=== PATIENT | male | born 1990 | race Caucasian/White ===

== ENCOUNTER 2018-12-12 20:43 | Emergency (ER) | payer MEDICAID, OTHER ==
[~2018-12-12] VITALS: Ht 182.9 cm; Wt 117.5 kg
[2018-12-12 20:45] VITALS: BP 149/93
[2018-12-12] MEDS ORDERED: ketorolac trometh inj. 60 MG/2 ML VIAL IM ONE (21:05)
[2018-12-12] MEDS ORDERED: IBUP-1986 PO (21:05)
== END 2018-12-12 21:36 | disposition home or self-care (01) ==
LOC: ER 20:43
DX: M72.2 Plantar fascial fibromatosis (principal); I48.91 Unspecified atrial fibrillation; I10 Essential (primary) hypertension; G47.30 Sleep apnea, unspecified; F31.9 Bipolar disorder, unspecified; F15.90 Other stimulant use, unspecified, uncomplicated; Z98.890 Other specified postprocedural states; Z88.8 Allergy status to other drugs, medicaments and biological substances; Z79.899 Other long term (current) drug therapy; Z59.0 Homelessness
CPT/HCPCS: 96372; 99284; J1885

== ENCOUNTER 2018-12-15 23:15 | Emergency (ER) | payer OTHER ==
[~2018-12-15] VITALS: Ht 182.9 cm; Wt 152.3 kg
[~2018-12-15 23:15] MED LIST: IBUP-1986 PO
[2018-12-16] MEDS ORDERED: ibuprofen tablet 400 MG TABLET PO ONE
[2018-12-16 02:33] VITALS: BP 161/89
== END 2018-12-16 00:50 | disposition home or self-care (01) ==
LOC: ER 23:16
DX: M79.671 Pain in right foot (principal); M79.672 Pain in left foot; I48.91 Unspecified atrial fibrillation; I10 Essential (primary) hypertension; F31.9 Bipolar disorder, unspecified; F15.90 Other stimulant use, unspecified, uncomplicated; Z88.8 Allergy status to other drugs, medicaments and biological substances; Z79.1 Long term (current) use of non-steroidal anti-inflammatories (NSAID); Z59.0 Homelessness; Z90.89 Acquired absence of other organs
CPT/HCPCS: 99282

== ENCOUNTER 2018-12-16 18:47 | Emergency (ER) | payer OTHER ==
[~2018-12-16] VITALS: Ht 182.9 cm; Wt 152.7 kg
[2018-12-16 18:50] VITALS: BP 165/93
[2018-12-16] MEDS ORDERED: ibuprofen tablet 400 MG TABLET PO ONE (19:20)
== END 2018-12-16 19:32 | disposition home or self-care (01) ==
LOC: ER 18:48
DX: L30.4 Erythema intertrigo (principal); I48.91 Unspecified atrial fibrillation; I10 Essential (primary) hypertension; F15.90 Other stimulant use, unspecified, uncomplicated; Z59.0 Homelessness; Z90.89 Acquired absence of other organs; Z88.8 Allergy status to other drugs, medicaments and biological substances
CPT/HCPCS: 99283

== ENCOUNTER 2018-12-17 14:08 | Emergency (ER) | payer OTHER ==
[~2018-12-17] VITALS: Ht 182.9 cm; Wt 150.8 kg
[2018-12-17 15:28] LABS: BASOPHILS # (AUTO) 0.1 X10'3 (0-0.2); BASOPHILS % (AUTO) 0.5 % (0-1); EOSINOPHILS # (AUTO) 0.3 X10'3 (0-0.9); EOSINOPHILS % (AUTO) 2.5 % (0-6); HEMOGLOBIN 14.3 g/dl (14.0-17.9); LYMPHOCYTES # (AUTO) 2.3 X10'3 (1.1-4.8); LYMPHOCYTES % (AUTO) 21.6 % (21-51); MEAN CORPUSCULAR HEMOGLOBIN 29.5 PG (27.0-31.0); MEAN CORPUSCULAR HGB CONC 33.4 g/dL (33.0-36.5); MEAN CORPUSCULAR VOLUME 88.3 FL (78-98); MEAN PLATELET VOLUME 8.2 FL (7.4-10.4); MONOCYTES # (AUTO) 0.9 X10'3 (0-0.9); MONOCYTES % (AUTO) 8.9 % (2-12); NEUTROPHILS % (AUTO) 66.5 % (42-75); PLATELET COUNT 243 X10'3 (140-440); RED BLOOD COUNT 4.87 X10'6 (4.70-6.10); RED CELL DISTRIBUTION WIDTH 13.7 % (11.5-14.5); WHITE BLOOD COUNT 10.6 X10'3 (4.5-11.0)
[2018-12-17 15:40] LABS: ALANINE AMINOTRANSFERASE 43 U/L (12-78); ALBUMIN 3.4 G/DL (3.4-5.0); ALBUMIN/GLOBULIN RATIO 0.9 (1.1-1.5); ALKALINE PHOSPHATASE 78 IU/L (46-116); ANION GAP 8 (8-16); ASPARTATE AMINO TRANSFERASE 21 U/L (10-37); BILIRUBIN,TOTAL 0.3 MG/DL (0.1-1.0); BLOOD UREA NITROGEN 10 MG/DL (7-18); BUN/CREATININE RATIO 11.5 (5.4-32.0); CALCIUM 8.3 MG/DL (8.5-10.1); CHLORIDE 106 MMOL/L (99-107); CREATININE 0.87 MG/DL (0.60-1.10); GLUCOSE 86 MG/DL (70-104); POTASSIUM 3.7 MMOL/L (3.5-5.1); SODIUM 140 MMOL/L (135-145); TOTAL CARBON DIOXIDE 25.8 MMOL/L (24-32); TOTAL PROTEIN 7.2 G/DL (6.4-8.2); eGFR > 90 ML/MIN
[2018-12-17 15:47] LABS: ACETAMINOPHEN < 2.0 UG/ML (10-30)
--- NOTE | 2018-12-17 16:00 | NUR ---
pt arrived to ED 22 from main ER. Changed into green scrubs. Pt belongings documented and stored in lockers. Pt oriented to unit. Calm and cooperative. Attempted to obtain urine sample but pt missed urine specimen cup. PO fluids encouraged to obtain another urine sample. Pt resting in bed and drinking at this time.
[2018-12-17 17:27] LABS: CLARITY,URINE CLEAR (Clear); COLOR,URINE YELLOW (Yellow); GLUCOSE, URINE NEGATIVE (Neg); KETONES,URINE NEGATIVE (Neg); LEUKOCYTE ESTERASE ,URINE NEGATIVE (Neg); NITRITES, URINE NEGATIVE (Neg); OCCULT BLOOD,URINE NEGATIVE (Neg); PH,URINE 7.5 (4.8-8.0); PROTEIN,URINE NEGATIVE (Neg); UROBILINOGEN,URINE 0.2 E.U/dL (0.2-1.0)
--- NOTE | 2018-12-17 17:29 | NUR ---
pt resting comfortably in bed. Urine specimen obtained and sent to the lab.
[2018-12-17 17:37] LABS: UA COLLECTION TYPE CLN CATCH MIDSTREAM
[2018-12-17 17:40] LABS: URINE AMPHETAMINE SCREEN NEGATIVE (Neg); URINE BARBITUATE SCREEN NEGATIVE (Neg); URINE BENZODIAZEPINES SCREEN NEGATIVE (Neg); URINE CANNABINOID SCREEN NEGATIVE (Neg); URINE COCAINE SCREEN NEGATIVE (Neg); URINE METHADONE SCREEN NEGATIVE (Neg); URINE OPIATE SCREEN NEGATIVE (Neg); URINE PHENCYCLIDINE SCREEN NEGATIVE (Neg)
--- NOTE | 2018-12-17 18:22 | NUR ---
pt resting comfortably in bed. Report given to CRISTIAN Reyesweb portal developerassistant spa manager for continuation of care.
--- NOTE | 2018-12-17 19:25 | NUR ---
Patient was sleeping at shift change. Patient awakens easily. Depression is obvious. Affect is flat. Patient makes fair eye contact. The patient is well oriented and angry. Labile at times. This patient states he has no mental problems save for anxiety. Patient states his family paid 2000 dollars to have him diagnosed as Bipolar. My family is all a bunch of liars! "I have anxiety because everyone lies to me, including my family." Patient states he is homeless. "I did stay in a motel last night, and I bought some clothes. [place] [address]." The patient denies hallucinations. Patient states he has attempted S/I in the past. Examples: Cutting wrists, stabbing self, overdosed on pills. "I thought about chopping off my shady, it made me love myself more." At this time patient is S/I without a plan. This expert medical writer advised the patient that he is in a safe place. His bed is in direct view from the nursing station. Q15 minute rounding is in effect for patient safety.
--- NOTE | 2018-12-18 02:54 | NUR ---
Patient is sleeping quietly, low fowlers position. In view from nursing station. Q15 minute rounding for patient safety.
--- NOTE | 2018-12-18 05:20 | NUR ---
Patient is sleeping quietly. He was up to bathroom earlier.
[2018-12-18] MEDS ORDERED: LORazepam 1 MG tablet PO ONE (10:30)
--- NOTE | 2018-12-18 14:24 | NUR ---
ADISY FROM [facility] IS AT BEDSIDE TALKING WITH PT
[2018-12-18 15:48] VITALS: BP 137/83
[2018-12-19] MEDS ORDERED: HYDR-3686 PO (17:12)
== END 2018-12-18 16:17 | disposition home or self-care (01) ==
LOC: ER 14:08
DX: R45.851 Suicidal ideations (principal); F41.9 Anxiety disorder, unspecified; R07.89 Other chest pain; R06.02 Shortness of breath; R10.9 Unspecified abdominal pain; M54.9 Dorsalgia, unspecified; I48.91 Unspecified atrial fibrillation; I10 Essential (primary) hypertension; G47.30 Sleep apnea, unspecified; F31.9 Bipolar disorder, unspecified; F17.200 Nicotine dependence, unspecified, uncomplicated; F15.90 Other stimulant use, unspecified, uncomplicated; F12.90 Cannabis use, unspecified, uncomplicated; Z90.89 Acquired absence of other organs; Z59.0 Homelessness; Z88.1 Allergy status to other antibiotic agents; Z88.8 Allergy status to other drugs, medicaments and biological substances; Z79.899 Other long term (current) drug therapy
CPT/HCPCS: 36415; 80053; 80305; 80329; 81003; 85025; 99284

== ENCOUNTER 2018-12-19 15:30 | Emergency (ER) | payer OTHER ==
[2018-12-19] MEDS ORDERED: HYDR-3686 PO (17:12)
== END 2018-12-19 15:42 | disposition left against medical advice (07) ==
LOC: ER 15:31
DX: F41.9 Anxiety disorder, unspecified (principal); Z53.21 Procedure and treatment not carried out due to patient leaving prior to being seen by health care provider

== ENCOUNTER 2018-12-19 16:49 | Emergency (ER) | payer OTHER ==
[~2018-12-19] VITALS: Ht 172.7 cm; Wt 125.0 kg
[2018-12-19 17:06] VITALS: BP 146/73
[2018-12-19] MEDS ORDERED: HYDR-3686 PO (17:12)
== END 2018-12-19 18:30 | disposition home or self-care (01) ==
LOC: ER 16:50
DX: F41.9 Anxiety disorder, unspecified (principal); I48.91 Unspecified atrial fibrillation; I10 Essential (primary) hypertension; G47.30 Sleep apnea, unspecified; F31.9 Bipolar disorder, unspecified; F12.90 Cannabis use, unspecified, uncomplicated; F15.90 Other stimulant use, unspecified, uncomplicated; Z59.0 Homelessness; Z98.890 Other specified postprocedural states; Z88.8 Allergy status to other drugs, medicaments and biological substances; Z79.899 Other long term (current) drug therapy
CPT/HCPCS: 99284

== ENCOUNTER 2018-12-20 12:47 | Emergency (ER) | payer OTHER ==
[~2018-12-20] VITALS: Ht 182.9 cm; Wt 148.8 kg
[~2018-12-20 12:47] MED LIST changes: +HYDR-3686 PO
[2018-12-20 13:09] VITALS: BP 127/91
--- NOTE | 2018-12-20 13:42 | NUR ---
Pt sitting quietly in room using cellphone. No acute objective anxiety s/s observed.
--- NOTE | 2018-12-20 13:57 | NUR ---
Pt repeatedly asking for bus ticket to [place]. When asked if he needed a taxi somewhere at discharge, he replied he needed one to [place]. I told the patient that we could not supply that and provided him a meal. When Pt was told it was time to leave, Pt got upset and stormed out of the ED. Pt threw his discharge papers at the tech and refused the food provided.
== END 2018-12-20 14:02 | disposition home or self-care (01) ==
LOC: ER 12:47
DX: F41.9 Anxiety disorder, unspecified (principal); I48.91 Unspecified atrial fibrillation; I10 Essential (primary) hypertension; G47.30 Sleep apnea, unspecified; F31.9 Bipolar disorder, unspecified; F12.90 Cannabis use, unspecified, uncomplicated; F15.90 Other stimulant use, unspecified, uncomplicated; Z59.0 Homelessness; Z98.890 Other specified postprocedural states; Z88.8 Allergy status to other drugs, medicaments and biological substances; Z79.899 Other long term (current) drug therapy
CPT/HCPCS: 99284

== ENCOUNTER 2018-12-21 06:14 | Emergency (ER) | payer OTHER ==
[2018-12-21 06:16] VITALS: BP 146/77
== END 2018-12-21 07:03 | disposition home or self-care (01) ==
LOC: ER 06:14
DX: F41.9 Anxiety disorder, unspecified (principal); R40.0 Somnolence; I48.91 Unspecified atrial fibrillation; I10 Essential (primary) hypertension; G47.30 Sleep apnea, unspecified; F31.9 Bipolar disorder, unspecified; F12.90 Cannabis use, unspecified, uncomplicated; F15.90 Other stimulant use, unspecified, uncomplicated; Z98.890 Other specified postprocedural states; Z59.0 Homelessness; Z88.8 Allergy status to other drugs, medicaments and biological substances; Z79.899 Other long term (current) drug therapy
CPT/HCPCS: 99284

== ENCOUNTER 2018-12-21 12:51 | Emergency (ER) | payer OTHER ==
[2018-12-21 13:42] LABS: BASOPHILS # (AUTO) 0.1 X10'3 (0-0.2); BASOPHILS % (AUTO) 0.9 % (0-1); EOSINOPHILS # (AUTO) 0.3 X10'3 (0-0.9); EOSINOPHILS % (AUTO) 2.8 % (0-6); HEMATOCRIT 44.8 % (42.0-52.0); HEMOGLOBIN 15.1 g/dl (14.0-17.9); LYMPHOCYTES % (AUTO) 24.4 % (21-51); MEAN CORPUSCULAR HEMOGLOBIN 29.8 PG (27.0-31.0); MEAN CORPUSCULAR HGB CONC 33.7 g/dL (33.0-36.5); MEAN CORPUSCULAR VOLUME 88.2 FL (78-98); MEAN PLATELET VOLUME 7.9 FL (7.4-10.4); MONOCYTES # (AUTO) 1.2 X10'3 (0-0.9); MONOCYTES % (AUTO) 9.9 % (2-12); NEUTROPHILS # (AUTO) 7.7 X10'3 (1.8-7.7); PLATELET COUNT 284 X10'3 (140-440); RED BLOOD COUNT 5.08 X10'6 (4.70-6.10); RED CELL DISTRIBUTION WIDTH 13.7 % (11.5-14.5); WHITE BLOOD COUNT 12.4 X10'3 (4.5-11.0)
[2018-12-21 13:57] LABS: ALANINE AMINOTRANSFERASE 47 U/L (12-78); ALBUMIN 3.7 G/DL (3.4-5.0); ALBUMIN/GLOBULIN RATIO 0.9 (1.1-1.5); ALKALINE PHOSPHATASE 85 IU/L (46-116); ANION GAP 9 (8-16); ASPARTATE AMINO TRANSFERASE 26 U/L (10-37); BILIRUBIN,TOTAL 0.4 MG/DL (0.1-1.0); BLOOD UREA NITROGEN 10 MG/DL (7-18); BUN/CREATININE RATIO 12.7 (5.4-32.0); CALCIUM 9.1 MG/DL (8.5-10.1); CHLORIDE 106 MMOL/L (99-107); CREATININE 0.79 MG/DL (0.60-1.10); GLUCOSE 90 MG/DL (70-104); POTASSIUM 3.8 MMOL/L (3.5-5.1); SODIUM 142 MMOL/L (135-145); TOTAL CARBON DIOXIDE 27.2 MMOL/L (24-32); TOTAL PROTEIN 7.7 G/DL (6.4-8.2); eGFR > 90 ML/MIN
[2018-12-21 14:05] LABS: CLARITY,URINE CLEAR (Clear); COLOR,URINE YELLOW (Yellow); GLUCOSE, URINE NEGATIVE (Neg); KETONES,URINE NEGATIVE (Neg); LEUKOCYTE ESTERASE ,URINE NEGATIVE (Neg); NITRITES, URINE NEGATIVE (Neg); OCCULT BLOOD,URINE NEGATIVE (Neg); PH,URINE 5.5 (4.8-8.0); PROTEIN,URINE NEGATIVE (Neg); URINE AMPHETAMINE SCREEN NEGATIVE (Neg); URINE BARBITUATE SCREEN NEGATIVE (Neg); URINE BENZODIAZEPINES SCREEN NEGATIVE (Neg); URINE CANNABINOID SCREEN NEGATIVE (Neg); URINE COCAINE SCREEN NEGATIVE (Neg); URINE METHADONE SCREEN NEGATIVE (Neg); URINE OPIATE SCREEN NEGATIVE (Neg); URINE PHENCYCLIDINE SCREEN NEGATIVE (Neg); UROBILINOGEN,URINE 0.2 E.U/dL (0.2-1.0)
[2018-12-21 14:06] LABS: ETHANOL < 0.010 GM/DL (0.0-0.010)
[2018-12-21 14:12] LABS: UA COLLECTION TYPE CLN CATCH MIDSTREAM
--- NOTE | 2018-12-21 15:03 | NUR ---
Admission Note: Pt arrived from [facility] on 1798. Pt packet sent to [facility]. Pt c/o right hand pain due to punching wall. Hand is swollen, but x-ray is negative. Pt states he is here for anxiety and wants ativan. Pt cooperative with nursing assessment, but appeared sedated and when left alone for 5 minutes, pt fell asleep and is snoring.
--- NOTE | 2018-12-21 17:00 | NUR ---
Pt remains asleep without complaints.
--- NOTE | 2018-12-21 19:22 | NUR ---
Assumed care at 1830 from Mati RN. This patient has been evaluated by [facility]. He is to be discharged. This patient dressed. This rewriter reviewed discharge instructions with the patient. He exhibited understanding of said instructions. The patient requests that this rewriter call his mother Griselda Loya. He asks this rewriter to inform his mother of his circomstances including his patient information. A phone call was placed to Griselda, her voice mail identified her as an RN/Patient advocate. This rewriter left a message return a call to this rewriter iva at [facility] ER. At the time of discharge a call had not been returned. This patient was offered a taxi for transportation to where ever he needs to go. He declined. He walked from the ER to the streets. A sandwich was offered and accepted by Mr. Sweet.
[2018-12-21 19:32] VITALS: BP 134/75
== END 2018-12-21 19:36 | disposition home or self-care (01) ==
LOC: ER 12:51
DX: S60.221A Contusion of right hand, initial encounter (principal); R45.850 Homicidal ideations; R45.851 Suicidal ideations; M79.641 Pain in right hand; F41.9 Anxiety disorder, unspecified; I48.91 Unspecified atrial fibrillation; I10 Essential (primary) hypertension; G47.30 Sleep apnea, unspecified; F31.9 Bipolar disorder, unspecified; F12.90 Cannabis use, unspecified, uncomplicated; F15.90 Other stimulant use, unspecified, uncomplicated; Z59.0 Homelessness; Z98.890 Other specified postprocedural states; Z88.8 Allergy status to other drugs, medicaments and biological substances; Z79.899 Other long term (current) drug therapy; X83.8XXA Intentional self-harm by other specified means, initial encounter; Y93.89 Activity, other specified; Y92.89 Other specified places as the place of occurrence of the external cause; Y99.8 Other external cause status
CPT/HCPCS: 36415; 73130; 80053; 80305; 80320; 81003; 84443; 85025; 99284

== ENCOUNTER 2019-06-06 20:04 | Emergency (ER) | payer OTHER ==
[~2019-06-06] VITALS: Ht 182.9 cm; Wt 136.0 kg
[~2019-06-06 20:04] MED LIST changes: -HYDR-3686 PO
[2019-06-06] MEDS ORDERED: hydrOXYzine 25 MG tablet PO ONE (20:45)
[2019-06-06] MEDS ORDERED: acetaminophen 325mg tablet PO ONE (20:45)
[2019-06-06 21:04] VITALS: BP 126/75
[2019-06-07] MEDS ORDERED: CEPH250T PO (18:26)
== END 2019-06-06 21:07 | disposition home or self-care (01) ==
LOC: ER 20:05
DX: M79.671 Pain in right foot (principal); I48.91 Unspecified atrial fibrillation; I10 Essential (primary) hypertension; F41.9 Anxiety disorder, unspecified; F31.9 Bipolar disorder, unspecified; G47.30 Sleep apnea, unspecified; F10.99 Alcohol use, unspecified with unspecified alcohol-induced disorder; Z90.89 Acquired absence of other organs; Z90.49 Acquired absence of other specified parts of digestive tract; Z59.0 Homelessness; Z79.2 Long term (current) use of antibiotics; Z79.899 Other long term (current) drug therapy; Z88.8 Allergy status to other drugs, medicaments and biological substances; Y90.9 Presence of alcohol in blood, level not specified
CPT/HCPCS: 73630; 99283; Z7610

== ENCOUNTER 2019-06-07 17:06 | Emergency (ER) | payer OTHER ==
[~2019-06-07] VITALS: Ht 188 cm; Wt 140.9 kg
[2019-06-07 17:19] VITALS: BP 165/89
--- NOTE | 2019-06-07 18:07 | NUR ---
Pt opened his eyes and took a swing at CHARLI Smith. Pt then closed eyes and refuses to respond to questioning.
[2019-06-07 18:08] LABS: BASOPHILS # (AUTO) 0.1 X10'3 (0-0.2); BASOPHILS % (AUTO) 0.5 % (0-1); EOSINOPHILS # (AUTO) 0.5 X10'3 (0-0.9); EOSINOPHILS % (AUTO) 4.3 % (0-6); HEMATOCRIT 39.6 % (42.0-52.0); HEMOGLOBIN 13.4 g/dl (14.0-17.9); LYMPHOCYTES # (AUTO) 1.8 X10'3 (1.1-4.8); LYMPHOCYTES % (AUTO) 15.4 % (21-51); MEAN CORPUSCULAR HEMOGLOBIN 29.4 PG (27.0-31.0); MEAN CORPUSCULAR HGB CONC 33.9 g/dL (33.0-36.5); MEAN CORPUSCULAR VOLUME 86.7 FL (78-98); MEAN PLATELET VOLUME 8.8 FL (7.4-10.4); MONOCYTES # (AUTO) 1.3 X10'3 (0-0.9); MONOCYTES % (AUTO) 11.2 % (2-12); NEUTROPHILS # (AUTO) 7.9 X10'3 (1.8-7.7); NEUTROPHILS % (AUTO) 68.6 % (42-75); PLATELET COUNT 238 X10'3 (140-440); RED BLOOD COUNT 4.56 X10'6 (4.70-6.10); RED CELL DISTRIBUTION WIDTH 13.5 % (11.5-14.5); WHITE BLOOD COUNT 11.6 X10'3 (4.5-11.0)
[2019-06-07 18:24] LABS: ALANINE AMINOTRANSFERASE 40 U/L (12-78); ALBUMIN 3.5 G/DL (3.4-5.0); ALKALINE PHOSPHATASE 83 IU/L (46-116); ANION GAP 6 (8-16); ASPARTATE AMINO TRANSFERASE 46 U/L (10-37); BILIRUBIN,TOTAL 0.2 MG/DL (0.1-1.0); BLOOD UREA NITROGEN 12 MG/DL (7-18); BUN/CREATININE RATIO 13.5 (5.4-32.0); CALCIUM 8.6 MG/DL (8.5-10.1); CHLORIDE 109 MMOL/L (99-107); CREATININE 0.89 MG/DL (0.60-1.10); GLUCOSE 94 MG/DL (70-104); POTASSIUM 3.6 MMOL/L (3.5-5.1); SODIUM 146 MMOL/L (135-145); TOTAL CARBON DIOXIDE 30.6 MMOL/L (24-32); TOTAL PROTEIN 6.9 G/DL (6.4-8.2); eGFR > 90 ML/MIN
[2019-06-07] MEDS ORDERED: CEPH250T PO (18:26)
[2019-06-07 18:34] LABS: ETHANOL < 0.010 GM/DL (0.0-0.010)
--- NOTE | 2019-06-07 18:36 | NUR ---
PT DISCHARGE READY. PT REFUSED TO SIGN PAPERWORK AND REFUSING TO LEAVE.
== END 2019-06-07 18:38 | disposition home or self-care (01) ==
LOC: ER 17:07
DX: L03.116 Cellulitis of left lower limb (principal); L03.115 Cellulitis of right lower limb; I48.91 Unspecified atrial fibrillation; I10 Essential (primary) hypertension; F41.9 Anxiety disorder, unspecified; F31.9 Bipolar disorder, unspecified; F12.90 Cannabis use, unspecified, uncomplicated; F15.90 Other stimulant use, unspecified, uncomplicated; R41.82 Altered mental status, unspecified; Z59.0 Homelessness; Z90.89 Acquired absence of other organs; Z91.19 Patient's noncompliance with other medical treatment and regimen; Z88.8 Allergy status to other drugs, medicaments and biological substances
CPT/HCPCS: 36415; 80053; 80320; 84443; 85025; 99283

== ENCOUNTER 2019-06-08 13:33 | Emergency (ER) | payer OTHER ==
[~2019-06-08] VITALS: Ht 188 cm; Wt 138.6 kg
[~2019-06-08 13:33] MED LIST changes: +CEPH250T PO
[2019-06-08 15:19] LABS: BASOPHILS # (AUTO) 0.1 X10'3 (0-0.2); BASOPHILS % (AUTO) 0.6 % (0-1); EOSINOPHILS # (AUTO) 0.3 X10'3 (0-0.9); EOSINOPHILS % (AUTO) 2.6 % (0-6); HEMATOCRIT 38.8 % (42.0-52.0); HEMOGLOBIN 13.4 g/dl (14.0-17.9); MEAN CORPUSCULAR HEMOGLOBIN 29.9 PG (27.0-31.0); MEAN CORPUSCULAR HGB CONC 34.6 g/dL (33.0-36.5); MEAN CORPUSCULAR VOLUME 86.6 FL (78-98); MEAN PLATELET VOLUME 8.5 FL (7.4-10.4); MONOCYTES # (AUTO) 0.8 X10'3 (0-0.9); MONOCYTES % (AUTO) 7.4 % (2-12); NEUTROPHILS # (AUTO) 7.5 X10'3 (1.8-7.7); NEUTROPHILS % (AUTO) 70.4 % (42-75); PLATELET COUNT 255 X10'3 (140-440); RED BLOOD COUNT 4.48 X10'6 (4.70-6.10); RED CELL DISTRIBUTION WIDTH 13.1 % (11.5-14.5); WHITE BLOOD COUNT 10.6 X10'3 (4.5-11.0)
--- NOTE | 2019-06-08 15:30 | NUR ---
motion picture set up worker Mariana Cedeno from [employer] called and left phone number to call for inquiries regarding pt care. Report pt was recently encarcerated and was released with plan for pt to go to board and care. After pt released pt shortly eloped on bus to here in [place]. Report pt has Uncle here [place] and gave contact number . Inquired on pt meds and report pt has not been on medications since December as pt has been non-compliant and refusing to take.
[2019-06-08 15:31] LABS: URINE AMPHETAMINE SCREEN NEGATIVE (Neg); URINE BARBITUATE SCREEN NEGATIVE (Neg); URINE BENZODIAZEPINES SCREEN NEGATIVE (Neg); URINE CANNABINOID SCREEN NEGATIVE (Neg); URINE COCAINE SCREEN NEGATIVE (Neg); URINE METHADONE SCREEN NEGATIVE (Neg); URINE OPIATE SCREEN NEGATIVE (Neg); URINE PHENCYCLIDINE SCREEN NEGATIVE (Neg)
[2019-06-08 15:32] LABS: ALANINE AMINOTRANSFERASE 40 U/L (12-78); ALBUMIN 3.4 G/DL (3.4-5.0); ALKALINE PHOSPHATASE 91 IU/L (46-116); ANION GAP 9 (8-16); ASPARTATE AMINO TRANSFERASE 48 U/L (10-37); BILIRUBIN,TOTAL 0.3 MG/DL (0.1-1.0); BLOOD UREA NITROGEN 11 MG/DL (7-18); BUN/CREATININE RATIO 12.9 (5.4-32.0); CALCIUM 8.4 MG/DL (8.5-10.1); CHLORIDE 108 MMOL/L (99-107); CREATININE 0.85 MG/DL (0.60-1.10); ETHANOL < 0.010 GM/DL (0.0-0.010); GLUCOSE 126 MG/DL (70-104); POTASSIUM 3.4 MMOL/L (3.5-5.1); SODIUM 145 MMOL/L (135-145); TOTAL CARBON DIOXIDE 28.5 MMOL/L (24-32); TOTAL PROTEIN 6.9 G/DL (6.4-8.2); eGFR > 90 ML/MIN
--- NOTE | 2019-06-08 15:45 | NUR ---
Pt hx is limited as pt remains guarded and not answering many questions, assessments completed are limited to info pt disclosed.
--- NOTE | 2019-06-08 16:30 | NUR ---
Pts mother Kaitlyn Jones called and left contact number as well as reported past psychiatric hx. Report pt has been in and out of ED for psych evals approx 20 times this year. Mother reports she has been trying to get pt conserved as pt unable to care for self and has been increasingly worsened with sxs of AH (reports hearing over 60voices) and delusions. Mother reports hx dx of schizo effective disorder and depression. Pt does have SA approx 2 years ago and OD on over 500pills leading to intubation and hospitalization. Mother severly concerned for pt well being and requesting [facility] to contact her when pt evaluated.
--- NOTE | 2019-06-08 19:58 | NUR ---
The patient has been laying quietly on his bed. He was cooperative with the washtub worker helper. When asked how he came to be in the ER he replied, "I was trying to better someones life. I feel like she was being taken advantage of." He reports that God has been talking to him and telling him to do things. "God talks to me all the time...He told me to get food for her(10 y/o female in the community) and bring all my ideas to her to better her life. So I was just trying to better a little girl's life" He stated that "people keep attacking me and yelling at me and telling me to leave" When asked about suicide he stated he was having suicidal thoughts and added, "I can't find any friends...Life sucks. I don't deserve this. would be easier" He has a blunted affect. He has very poor insight to his need for mental health treatment. He has no insight into why he can't approach small female children. Dr. Ceballos contacted for a medication consult and orders received.
[2019-06-08] MEDS: LORazepam 1 MG tablet PO SCH (20:13)
[2019-06-08] MEDS: OLANZAPINE 5 MG TABLET PO SCH (20:13)
--- NOTE | 2019-06-08 21:18 | NUR ---
The patient appears to be sleeping at this time after being given his HS medications and an evening snack.
--- NOTE | 2019-06-08 23:35 | NUR ---
The patient appears to be sleeping
--- NOTE | 2019-06-09 01:51 | NUR ---
The patient appears to be sleeping
--- NOTE | 2019-06-09 04:43 | NUR ---
The patient appeared to have slept well during the night
[2019-06-09] MEDS: LORazepam 1 MG tablet PO SCH ×2 (08:00→20:00)
--- NOTE | 2019-06-09 08:26 | NUR ---
SAFETY BREAKFAST TRAY DELIVERED TO BEDSIDE, PT SLEEPING.
--- NOTE | 2019-06-09 08:51 | NUR ---
DAISY FROM [facility] AT BEDSIDE FOR EVALUATION. Addendum: 06/09/19 at 0859 by LORE PT UNABLE TO STAY AWAKE DURING [facility] EVALUATION. DAISY STATES THAT HE WAS ASSESS PT AT A LATER TIME TODAY
--- NOTE | 2019-06-09 09:50 | NUR ---
PT IS AWAKE AND UP TO BATHROOM WITHOUT ASSISTANCE, DAISY FROM [facility] NOTIFIED.
--- NOTE | 2019-06-09 10:04 | NUR ---
DAISY FROM [facility] AT BEDSIDE TO RE-EVALUATE PT. STATES THAT HE WILL BE GIVING PT'S MOTHER A CALL FOR FURTHER INFORMATION.
--- NOTE | 2019-06-09 11:27 | NUR ---
5150 BEING UPHELD BY [facility] AFTER DAISY SPOKE WITH PT'S MOTHER
--- NOTE | 2019-06-09 13:34 | NUR ---
PT VOMITED AFTER DRINKING 2ND GLASS OF K+, DR NEIL INFORMED
--- NOTE | 2019-06-09 13:44 | NUR ---
SAFETY LUNCH TRAY DELIVERED TO BEDSIDE. PT SLEEPING
--- NOTE | 2019-06-09 16:26 | NUR ---
PT SLEEPING, NO S/S OF DISTRESS NOTED
--- NOTE | 2019-06-09 20:05 | NUR ---
One to one with the patient to assess severity of psychotic symptoms and self harm risk. He stated, "I think people are nuts. I think they're fucking nuts" He then went on to state, "I hear these voices telling me what to do....I always listen to this specific voice. I am given the impression that it is God. Sometimes he speaks to me through other people...I could swear he wanted me to be the savior of the world, the 2nd coming of leora" He then suddenly became hostile and dismissive and demanded that he not be talked to. He most likely is hearing voices telling him not to give information as this has been reported in the past. He refused his physical assessment.
[2019-06-09] MEDS: OLANZAPINE 5 MG TABLET PO SCH (20:28)
--- NOTE | 2019-06-09 23:42 | NUR ---
The patient took his HS medications and has been sleeping since that time.
--- NOTE | 2019-06-10 02:10 | NUR ---
The patient appears to be sleeping
--- NOTE | 2019-06-10 03:40 | NUR ---
The patient appears to be sleeping
[2019-06-10 05:52] VITALS: BP 144/75
--- NOTE | 2019-06-10 06:46 | NUR ---
PT RESTING ON BACK, EYES CLOSED, RR EQUAL AND UNLABORED
[2019-06-10] MEDS: LORazepam 1 MG tablet PO SCH (08:37)
--- NOTE | 2019-06-10 08:42 | NUR ---
UP TO BR, STEADY GAIT, PT SITTING UP IN BED EATING BREAKFAST NO NEEDS AT THIS TIME
--- NOTE | 2019-06-10 10:55 | NUR ---
PT RESTING SITTING UP IN BED EYES CLOSED. RR EQUAL AND UNLABORED
--- NOTE | 2019-06-10 12:12 | NUR ---
CALL FROM ZAHIRA AT [facility] STATING PT HAS BEEN ACCEPTED BY [facility] AND WILL GO UP AT SOME TIME TODAY
--- NOTE | 2019-06-10 12:18 | NUR ---
BREAKING PRIMARY RN PT IS SUPINE IN BED, EYES CLOSED, REGULAR BREATHING PRESENT, NO AGITATION PRESENT
[2019-06-10] MEDS ORDERED: LORA-269 PO (13:30)
[2019-06-10] MEDS ORDERED: OLAN15TA3 PO (13:30)
== END 2019-06-10 14:40 | disposition home or self-care (01) ==
LOC: ER 13:33
DX: F29 Unspecified psychosis not due to a substance or known physiological condition (principal); F31.9 Bipolar disorder, unspecified; F41.9 Anxiety disorder, unspecified; F12.90 Cannabis use, unspecified, uncomplicated; F15.90 Other stimulant use, unspecified, uncomplicated; F17.200 Nicotine dependence, unspecified, uncomplicated; I48.91 Unspecified atrial fibrillation; R45.851 Suicidal ideations; I10 Essential (primary) hypertension; Z59.0 Homelessness; Z90.89 Acquired absence of other organs; Z88.8 Allergy status to other drugs, medicaments and biological substances
CPT/HCPCS: 36415; 80053; 80305; 80320; 85025; 99285